=== PATIENT | female | born 1990 | race Caucasian/White ===

== ENCOUNTER 2016-06-22 14:32 | Emergency (ER) | payer MEDICAID ==
[~2016-06-22] VITALS: Ht 154.9 cm; Wt 61.2 kg
--- NOTE | 2016-06-22 14:55 | NUR ---
DR JI AT THE BEDSIDE FOR EVAL AND EXAM.
[2016-06-22] MEDS ORDERED: MAG HYDROX/AL HYDROX/SIMETH 30 ML LIQUID UDC PO ONE (15:00)
[2016-06-22] MEDS ORDERED: ONDANSETRON 4 MG/2 ML VIAL IV ONE (15:00)
[2016-06-22] MEDS ORDERED: PANTOPRAZOLE SODIUM 40 MG VIAL IV ONE (15:00)
[2016-06-22] MEDS ORDERED: IV NORMAL SALINE 1000 ML BAG IV ONE (15:00)
[2016-06-22] MEDS ORDERED: DICYCLOMINE HCL 10 MG/5 ML UDC LIQ PO ONE (15:00)
[2016-06-22] MEDS ORDERED: ONDANSETRON 4 MG/2 ML VIAL ONE ×2 (15:22→15:40)
[2016-06-22] MEDS ORDERED: PANTOPRAZOLE SODIUM 40 MG VIAL ONE (15:22)
[2016-06-22 15:24] LABS: BASOPHILS % (AUTO) 0.4 % (0.0-2.0); EOSINOPHILS # (AUTO) 0.2 K/uL (0.0-0.7); EOSINOPHILS % (AUTO) 2.4 % (0.0-7.0); HEMATOCRIT 39.8 % (31.2-41.9); HEMOGLOBIN 13.7 g/dL (10.9-14.3); LYMPHOCYTES # (AUTO) 2.1 K/uL (20.0-40.0); LYMPHOCYTES % (AUTO) 23.7 % (20.5-51.5); MEAN CORPUSCULAR HEMOGLOBIN 29.7 uug (24.7-32.8); MEAN CORPUSCULAR HGB CONC 34 g/dL (32.3-35.6); MEAN CORPUSCULAR VOLUME 86.2 fL (75.5-95.3); MONOCYTES # (AUTO) 0.6 K/uL (2.0-10.0); MONOCYTES % (AUTO) 7.1 % (0.0-11.0); NEUTROPHILS # (AUTO) 6.1 K/uL (1.8-8.9); NEUTROPHILS % (AUTO) 66.4 % (38.5-71.5); PLATELET COUNT (AUTO) 239 K/uL (179-408); RED BLOOD CELL COUNT(AUTO) 4.61 MIL/uL (3.63-4.92); RED CELL DISTRIBUTION WIDTH 11.4 % (12.3-17.7)
[2016-06-22] MEDS ORDERED: ONDANSETRON IV *ER 4 MG/2 ML VIAL IV ONE (15:30)
[2016-06-22 15:32] LABS: ALBUMIN 3.6 g/dL (3.4-5.0); BILIRUBIN,DIRECT 0.1 mg/dL (0.0-0.2); BILIRUBIN,TOTAL 0.3 mg/dL (0.2-1.0); CALCIUM 9.4 mg/dL (8.5-10.1); CREATININE 0.8 mg/dL (0.6-1.3); POTASSIUM 4.4 mmol/L (3.5-5.1); TOTAL PROTEIN, SERUM 6.9 g/dL (6.4-8.2)
[2016-06-22] MEDS ORDERED: MAG HYDROX/AL HYDROX/SIMETH 30 ML LIQUID UDC ONE (15:56)
[2016-06-22] MEDS ORDERED: DICYCLOMINE HCL 10 MG/5 ML UDC LIQ ONE ×2 (15:56)
[2016-06-22] MEDS ORDERED: MAGNESIUM CITRATE 296 ML BOTTLE PO ONE (16:00)
[2016-06-22] MEDS ORDERED: MAGNESIUM CITRATE 296 ML BOTTLE ONE (16:07)
[2016-06-22 16:33] VITALS: BP 121/58
--- NOTE | 2016-06-22 16:33 | NUR ---
IV removed. Catheter intact and site benign. Pressure and 4x4 gauze applied to site. No bleeding noted.
--- NOTE | 2016-06-22 16:34 | NUR ---
Patient discharged to home in stable conditon. Written and verbal after care instructions given. Patient verbalizes understanding of instructions.
== END 2016-06-22 16:34 | disposition home or self-care (01) ==
LOC: ER 14:38
DX: K21.0 Gastro-esophageal reflux disease with esophagitis (principal); K59.00 Constipation, unspecified
CPT/HCPCS: 36415; 80048; 80076; 83690; 85025; 96361; 96374; 96375; 99284; A4663; C9113; J2405 ×2; J7030